=== PATIENT | female | born 1970 ===

== ENCOUNTER 2021-09-07 19:19 | Emergency (ER) | payer SELFPAY ==
[2021-09-08] MEDS ORDERED: ONDANSETRON 4 MG ODT TAB PO ONE (08:18)
[2021-09-08] MEDS ORDERED: SODIUM CHLORIDE 0.9% 1000 ML 1,000 ML IV ONE (08:18)
[2021-09-08] MEDS ORDERED: KETOROLAC 30 MG/1 ML INJ IV ONE (09:00)
[2021-09-08 09:52] LABS: Basophils % (Auto) 0.2 % (0.0-1.8); Eosinophils # (Auto) 0.1 K/mm3 (0.0-0.4); Eosinophils % (Auto) 1.4 % (0.0-4.3); Hematocrit 42.9 % (30.3-42.9); Lymphocytes # (Auto) 1.7 K/mm3 (1.2-5.4); Lymphocytes % (Auto) 34.1 % (13.4-35.0); Mean Corpuscular HGB Conc 33 % (30-34); Mean Corpuscular Volume 89 fl (79-97); Monocytes # (Auto) 0.3 K/mm3 (0.0-0.8); Monocytes % (Auto) 6.9 % (0.0-7.3); Platelet Count 189 K/mm3 (140-440); Red Blood Count 4.84 M/mm3 (3.65-5.03); Red Cell Distribution Width 14.5 % (13.2-15.2)
--- NOTE | 2021-09-08 10:42 | Emergency Department Report ---
ED Headache HPI - General Chief Complaint: Headache Stated Complaint: SEVERE HEADACHE X1WK - History of Present Illness Initial Comments: 49-year-old female presents to the ED complaining left-sided headache pain x2 weeks. Patient states she has been taking Naprosyn 500 mg twice a day without any relief. Patient was evaluate prior at another hospital per family member for headache and was told she to return if any worsening symptom. She states that headache is a current 8 out of 10. States nausea at present time. Patient denies any fever or chills at present time. Patient is able to move all extremity without difficulty. She denies any blurry vision. Language line used for interpretation. Quality: moderate Head Injury Location: frontal Recent Head Trauma: chronic headaches Modifying Factors: improves with: medication Associated Symptoms: denies symptoms Allergies/Adverse Reactions: Allergies No Known Allergies Allergy (Unverified 09/08/21 08:31) Home Medications: Ambulatory Orders Ketorolac [Toradol] 10 mg PO Q6H PRN 5 Days #20 tab 09/08/21 Ondansetron [Zofran ODT TAB] 8 mg PO Q12HR 3 Days #12 tab.rapdis 09/08/21 ED Review of Systems ROS: Stated complaint: SEVERE HEADACHE X1WK Other details as noted in HPI Constitutional: denies: chills, fever Eyes: denies: eye pain, eye discharge, vision change ENT: denies: ear pain, throat pain Respiratory: denies: cough, shortness of breath, wheezing Cardiovascular: denies: chest pain, palpitations Endocrine: no symptoms reported Gastrointestinal: nausea. denies: abdominal pain, diarrhea Genitourinary: denies: urgency, dysuria, discharge Musculoskeletal: denies: back pain, joint swelling, arthralgia Skin: denies: rash, lesions Neurological: headache. denies: weakness, paresthesias Psychiatric: denies: anxiety, depression Hematological/Lymphatic: denies: easy bleeding, easy bruising ED Past Medical Hx - Medications Home Medications: Home Medications Medication Instructions Recorded Confirmed Last Taken Type Ketorolac [Toradol] 10 mg PO Q6H PRN 5 Days #20 tab 09/08/21 Unknown Rx Ondansetron [Zofran ODT TAB] 8 mg PO Q12HR 3 Days #12 tab.rapdis 09/08/21 Unknown Rx ED Physical Exam - General Limitations: No Limitations General appearance: alert, in no apparent distress - Head Head exam: Present: atraumatic, normocephalic - Eye Eye exam: Present: normal appearance - ENT ENT exam: Present: mucous membranes moist - Neck Neck exam: Present: normal inspection - Respiratory Respiratory exam: Present: normal lung sounds bilaterally. Absent: respiratory distress - Cardiovascular Cardiovascular Exam: Present: regular rate, normal rhythm. Absent: systolic murmur, diastolic murmur, rubs, gallop - GI/Abdominal GI/Abdominal exam: Present: soft, normal bowel sounds - Extremities Exam Extremities exam: Present: normal inspection - Back Exam Back exam: Present: normal inspection - Neurological Exam Neurological exam: Present: alert, oriented X3 - Psychiatric Psychiatric exam: Present: normal affect, normal mood - Skin Skin exam: Present: warm, dry, intact, normal color. Absent: rash ED Course Vital Signs 09/07/21 09/08/21 09/08/21 19:23 07:53 12:06 Temperature 98.3 F 97.0 F L Pulse Rate 75 59 L 76 Respiratory 18 16 18 Rate Blood Pressure 131/75 Blood Pressure 104/64 110/66 [Left] Blood Pressure 110/66 [Right] O2 Sat by Pulse 93 98 99 Oximetry ED Medical Decision Making - Lab Data Result diagrams: 09/08/21 08:22 09/08/21 08:22 - Radiology Data [facility] [address] [place] [address] Cat Scan Report Signed Patient: GIOVANI PABLO MR#: [id number] : 1970 Acct:[id number] Age/Sex: 50 / F ADM Date: 09/07/21 Loc: ED Attending Dr: Ordering Physician: SOLITARIO BRYANT MD Date of Service: 09/08/21 Procedure(s): CT head/brain wo con Accession Number(s): [id number] cc: SOLITARIO BRYANT MD CT HEAD WITHOUT CONTRAST INDICATION / CLINICAL INFORMATION: Headache. TECHNIQUE: Axial imaging performed from the skull apex through the skull base without the use of contrast. Sagittal and coronal reformatted images. All CT scans at this location are performed using CT dose reduction for ALARA by means of automated exposure control. COMPARISON: None available. FINDINGS: CEREBRAL PARENCHYMA: No significant abnormality. No acute territorial infarct. HEMORRHAGE: None. EXTRA-AXIAL SPACES: Normal in size and morphology for the patient's age. VENTRICULAR SYSTEM: Normal in size and morphology for the patient's age. MIDLINE SHIFT OR HERNIATION: None. CEREBELLUM / BRAINSTEM: No significant abnormality. CALVARIUM: No significant abnormality. ORBITS: Normal as visualized. PARANASAL SINUSES / MASTOID AIR CELLS: Normal as visualized. SOFT TISSUES of HEAD: No significant abnormality. ADDITIONAL FINDINGS: None. IMPRESSION: No acute intracranial abnormality. Signer Name: Adair Beal Jr, MD Signed: 09/08/2021 11:49 AM Workstation Name: [id number] Transcribed By: TTR Dictated By: ADAIR BEAL JR, MD Electronically Authenticated By: ADAIR BEAL JR, MD Signed Date/Time: 09/08/21 114 DD/ 1148 TD/TT: - Medical Decision Making 49-year-old female presents to the ED complaining left-sided headache pain x2 weeks. Patient states she has been taking Naprosyn 500 mg twice a day without any relief. Patient was evaluate prior at another hospital per family member for headache and was told she to return if any worsening symptom. She states that headache is a current 8 out of 10. States nausea at present time. Patient denies any fever or chills at present time. Patient is able to move all extremity without difficulty. She denies any blurry vision. Language line used for interpretation. Examination unremarkable patient given Toradol 30 mg IV and Zofran [address] of the head showed no abnormality . Patient advised to stop taking Naprosyn. Patient was resting quietly with eyes closed and easily aroused. Rechecked the patient is resting quietly quietly and comfortable and feeling better. I discussed the results of diagnostic study, my clinical impression and the plan for further treatment with the patient. Patient agrees with plan and discharge at this present time. All question addressed. I have given the patient instruction regarding a diagnosis ,expectation ,follow- up and return precaution. I explained to the patient that emergent condition may arise and to return to the ED for new worsen and any new persisting condition. I have explained the importance of following up with the primary care physician or referral physician listed below has instructed. The patient verbalized understanding of discharge instruction. Critical care attestation.: If time is entered above; I have spent that time in minutes in the direct care of this critically ill patient, excluding procedure time. ED Disposition Clinical Impression: Migraine Qualifiers: Migraine type: unspecified Status migrainosus presence: without status migrainosus Intractability: not intractable Qualified Code(s): G43.909 - Migraine, unspecified, not intractable, without status migrainosus Disposition: HOME / SELF CARE / HOMELESS Is pt being admited?: No Does the pt Need Aspirin: No Condition: Stable Instructions: Migraine Headache, [id number] Additional Instructions: Stop taking Naprosyn Take medication as prescribed Follow-up with neurology Return to ED for any worsening symptom Prescriptions: Ketorolac [Toradol] 10 mg PO Q6H PRN 5 Days #20 tab PRN Reason: Pain Ondansetron [Zofran ODT TAB] 8 mg PO Q12HR 3 Days #12 tab.rapdis Referrals: FREDY VEGA MD [Primary Care Provider] - 3-5 Days Time of Disposition: 12:05 Print Language: BELGIAN
[2021-09-08 11:14] LABS: Alanine Aminotransferase 35 units/L (7-56); Albumin 4.4 g/dL (3.9-5); Blood Urea Nitrogen 14 mg/dL (7-17); Calcium 9.4 mg/dL (8.4-10.2); Hemolysis Index 4
[2021-09-08 11:21] LABS: BUN/Creatinine Ratio 23
--- NOTE | 2021-09-08 11:53 | Cat Scan Report ---
CT HEAD WITHOUT CONTRAST INDICATION / CLINICAL INFORMATION: Headache. TECHNIQUE: Axial imaging performed from the skull apex through the skull base without the use of cont rast. Sagittal and coronal reformatted images. All CT scans at this location are performed using CT dose reduction for ALARA by means of automated exposure control. COMPARISON: None available. FINDINGS: CEREBRAL PARENCHYMA: No significant abnormality. No acute territorial infarct. HEMORRHAGE: None. EXTRA-AXIAL SPACES: Normal in size and morphology for the patient's age. VENTRICULAR SYSTEM: Normal in size and morphology for the patient's age. MIDLINE SHIFT OR HERNIATION: None. CEREBELLUM / BRAINSTEM: No significant abnormality. CALVARIUM: No significant abnormality. ORBITS: Normal as visualized. PARANASAL SINUSES / MASTOID AIR CELLS: Normal as visualized. SOFT TISSUES of HEAD: No significant abnormality. ADDITIONAL FINDINGS: None. IMPRESSION: No acute intracranial abnormality. Signer Name: Adair Beal Jr, MD Signed: 09/08/2021 11:49 AM Workstation Name: [id number]
[2021-09-08 12:26] VITALS: BP 128/74
== END 2021-09-08 12:25 | disposition home or self-care (01) ==
LOC: ED 19:19
DX: G43.909 Migraine, unspecified, not intractable, without status migrainosus (principal)
CPT/HCPCS: 36415; 70450; 80053; 85025; 96361; 96374; 99284; J1885; J7030; J3490; Q0162